=== PATIENT | female | born 2000 | race Caucasian/White ===

== ENCOUNTER 2018-01-29 13:29 | Emergency (ER) | payer OTHER ==
[~2018-01-29] VITALS: Ht 157.5 cm; Wt 61.2 kg
[2018-01-29 13:30] VITALS: BP 121/81
[2018-01-29] MEDS ORDERED: predniSONE 10 MG TABLET PO ONE (14:00)
[2018-01-29] MEDS ORDERED: diphenhydrAMINE 50 MG/ML VIAL IM ONE (14:00)
[2018-01-29] MEDS ORDERED: METH4TAB2 PO (14:38)
--- NOTE | 2018-01-29 14:39 | PHYS DOC ---
Past Medical History Past Medical History: No Pertinent History Past Surgical History: No Surgical History Alcohol Use: None Drug Use: None Adult General Chief Complaint Chief Complaint: SKIN RASH/ABSCESS HPI HPI Patient is a 18 year old female who presents with hives. The patient states that she woke up today covered in an itchy rash. She is allergic to raspberries but denies eating the fruit that she can recall. She did not take any medications prior to arrival. She does not get anaphylaxis with raspberries. She knows of no other allergens. She denies any new shampoos, soaps or products. She has been helping paint a house over the past few days and has been exposed to paint and chemicals at that location. She denies shortness of breath or trouble swallowing. Review of Systems Review of Systems Constitutional: Denies fever or chills [] Eyes: Denies change in visual acuity, redness, or eye pain [] HENT: Denies nasal congestion or sore throat [] Respiratory: Denies cough or shortness of breath [] Cardiovascular: No additional information not addressed in HPI [] GI: Denies abdominal pain, nausea, vomiting, bloody stools or diarrhea [] : Denies dysuria or hematuria [] Musculoskeletal: Denies back pain or joint pain [] Integument: See history of present illness Neurologic: Denies headache, focal weakness or sensory changes [] Endocrine: Denies polyuria or polydipsia [] All other systems were reviewed and found to be within normal limits, except as documented in this note. Current Medications Current Medications Current Medications Medications (Trade) Dose Ordered Sig/[facility] Start Time Stop Time Status Last Admin Dose Admin Diphenhydramine HCl (Benadryl) 50 mg 1X ONCE 01/29/18 14:00 01/29/18 14:01 DC 01/29/18 14:05 50 MG Prednisone (Prednisone) 50 mg 1X ONCE 01/29/18 14:00 01/29/18 14:01 DC 01/29/18 14:04 50 MG Allergies Allergies Allergies Coded Allergies Type Severity Reaction Last Updated Verified No Known Drug Allergies 01/29/18 No Physical Exam Physical Exam Constitutional: Well developed, well nourished, no acute distress, non-toxic appearance. [] HENT: Normocephalic, atraumatic, bilateral external ears normal, oropharynx moist, no oral exudates, nose normal. [] Eyes: PERRLA, EOMI, conjunctiva normal, no discharge. [] Neck: Normal range of motion, no tenderness, supple, no stridor. [] Cardiovascular:Heart rate regular rhythm, no murmur [] Lungs & Thorax: Bilateral breath sounds clear to auscultation [] Abdomen: Bowel sounds normal, soft, no tenderness, no masses, no pulsatile masses. [] Skin: Generalized urticarial rash Neurologic: Alert and oriented X 3, normal motor function, normal sensory function, no focal deficits noted. [] Psychologic: Affect normal, judgement normal, mood normal. [] Current Patient Data Vital Signs Vital Signs Date Time Temp Pulse Resp B/P (MAP) Pulse Ox O2 Delivery O2 Flow Rate FiO2 01/29/18 13:30 98.8 121 14 121/81 (94) 97 Room Air 98.8 EKG EKG [] Radiology/Procedures Radiology/Procedures [] Course & Med Decision Making Course & Med Decision Making Pertinent Labs and Imaging studies reviewed. (See chart for details) []The patient was given prednisone and Benadryl in the emergency department. Dragon Disclaimer Dragon Disclaimer This electronic medical record was generated, in whole or in part, using a voice recognition dictation system. Departure Departure Impression: Primary Impression: Hives Disposition: 01 HOME, SELF-CARE Condition: STABLE Referrals: JUSTIN MILES DO (PCP) Patient Instructions: Hives Additional Instructions: Take medication as the package directs. You may also use Benadryl scheduled as the package allows. Follow-up with your primary care provider if not improving in 3 days or return to the emergency department immediately if worsening. Scripts Methylprednisolone (MEDROL) 4 Mg Tab.ds.pk 1 PKG PO UD, #1 PKG Prov: PRISCA SHERIDAN [employer] 01/29/18 PRISCA SHERIDAN APRN Jan 29, 2018 14:39
== END 2018-01-29 14:48 | disposition home or self-care (01) ==
LOC: ER 13:29
DX: L50.9 Urticaria, unspecified (principal)
CPT/HCPCS: 96372; 99283; J1200; J7512